=== PATIENT | male | born 2005 | race Two or more races ===

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

== ENCOUNTER 2025-02-07 08:53 | Emergency (ER) | payer BC, SELFPAY ==
[2025-02-07] VITALS (14 sets, daily range): BP systolic 111–123; BP diastolic 68–78; PULSE 61–62; RESP 0–23; TEMP 36.4; O2SAT 98–99; BMI 24.1
--- OUTSIDE RECORDS SUMMARY | 2025-02-07 08:55 | XMS_ITS | Patient Health Record ---
Author Organization [facility] Address [address] [facility] [address] [place], [place] [address] Care Team Providers Care Kiln Pusher Name Role Phone Clinic [facility] Primary Care Provider [phone] Dalila Hernandez Unavailable [phone] Allergies Allergen (clinical drug ingredient) Drug/Non Drug Allergy [...] Active beau grass (uncoded) Unknown Allergy Active Reason For Referral No Information Medications Medication SIG (Take, Route, Frequency, Duration) Notes Start Date End Date Status EPINEPHrine 0.3 MG/0.3ML as directed Injection 05/31/2019 Active Albuterol Sulfate (2.5 MG/3ML) 0.083% 3 mL Inhalation every 4 hours as needed Not-Taking Symbicort 80-4.5 MCG/ACT 2 puffs Inhalation every 4 hours as needed JESENIA 1 Please dispense 90 day supply. Thank you! Active Social History Tobacco Use: Social History Observation Description Date Details (start date - stop date) Never Smoker NA - NA Tobacco Question Answer Notes status: never smoked Problems Problem Type SNOMED Code ICD Code Onset Dates Problem Status W/U Status Risk Notes Problem Environmental allergy (414170887) Environmental allergies (Z91.048) Active confirmed Problem Food allergy (636023673) Food allergy (Z91.018) Active confirmed Problem Uncomplicated moderate persistent asthma (574864562) Asthma, moderate persistent, well-controlled (J45.40) Active confirmed Problem Environmental allergy (562411868) Environmental allergies (Z91.09) Active confirmed Problem Obesity (012722990) Obesity, unspecified (E66.9) Active confirmed Problem Childhood obesity (377505358) Pediatric body mass index (BMI) of greater than or equal to 95th percentile for age (Z68.54) Active confirmed Plan Of Treatment No Information Insurance Providers Payer Name Payer Address Payer Phone Subscriber Number Group Number Insured Name Patient Relationship to Insured Coverage Start Date Coverage End Date [facility] [address] [address] [place] [address] [id number] José Luis Aguilar Child - Insured has Financial Responsibility Medical (General) History Hospitalization History Reason Date(Month/Year) Asthma Exacerbation and Influenza 2017-06/08/2017
--- OUTSIDE RECORDS SUMMARY | 2025-02-07 08:55 | XMS_ITS | Clinical Summary ---
Author Organization [facility] Address [address] [place] [address] Care Team Providers Care Drier And Grinder Tender Name Role Phone Pcp, No Primary Care Provider Unavailabl e Allergies Active Allergy Reactions Criticality Noted Date Comments Shellfish Containing Products Hives,Itching 02/03/2009 Lobster/crab legs Medications EPINEPHrine (EPIPEN) 0.3 mg/0.3 mL auto-injectorInd ications:Mild persistent asthma without complication (HC) Inject 0.3 mg (1 Pen) intramuscular each time if needed for Allergic Reaction. 2 Each 1 05/25/19 25 Active albuterol HFA (ProAir HFA) 90 mcg/actuation inhalerIndicatio ns:Mild persistent asthma without complication (HC) Inhale 1-2 Puffs by mouth 4 times daily if needed for Shortness Of Breath. 1 Each 3 05/25/19 25 Active Symbicort 80-4.5 mcg/actuation (80-4.5 mcg each actuation) inhalerIndicatio ns:Mild persistent asthma without complication (HC) Inhale 2 Puffs by mouth once daily. 10.2 g 07/25/19 25 Active Active Problems Problem Noted Date Diagnosed Date Asthma, mild intermittent, well-controlled 11/12 Childhood obesity 11/12/2022 Food allergy 11/12/2022 Non-seasonal allergic rhinitis due to pollen Mild persistent asthma with acute exacerbation 0 06/06/2015 Allergic reaction 12/11/2008 Encounters Date Type Department Care Team Description 02/07/2025 Nurse Triage [facility] [address] [place] [address] Quinten Farnsworth DO 02/07/2025 Nurse/Clinic Staff Only [facility] [address] [place] [address] Quinten Farnsworth, Error-please disregard 02/07/2025 Travel from Last 3 Months Immunizations Immunization Administration Dates Next Due AMB Influenza, IIV3 (Age 6-3 5 mos) Preserve Free (Flu Clinic Only) 03/09/2021 AMB Influenza, IIV3 (Age >=3 years)(Flu Clinic Only) 03/22/2008 AMB Influenza, IIV4 PF (=>6 mos Flulaval,Fluzone Fluarix)(Flu Clinic Only) 03/17/2019,03/03/2015,03/02/2014 COVID-19 VACCINE SPIKEVAX (M ODERNA 50MCG/0.5ML) 12YO+ PFS 05/15/2024,04/07/2023 COVID-19 vaccine ([employer] NTech 30mcg/0.3mL) PF, MDV 10/27/2020,10/03/2020 DTaP 05/13/2006 [id number] (Pediarix) 2005,2005,1 06/01/2004 DTaP-IPV (Kinrix) 12/28/2010 HIB PRP-OMP (PedvaxHIB) 05/13/2006,2005, HPV 9 (Gardasil 9) 11/27/2020,05/06/2020, 020 Hepatitis A (Peds) 02/03/2007,02/03/2006 Hepatitis B (Peds) 2005 INFLUENZA, IIV3 PF (AGE >= 6 MO) 05/15/2024 Influenza A (H1N1), Inactivated 03/28/2009 Influenza, IIV3 (Age 6-35 mos) 1,02/04/2010,03/30/2007,05/13,03/15/2006 Influenza, IIV3 (Age >=3 years) 04/06/20 13,02/04/2012,02/02/2011,02/04,03/30/2007,05/13/2006,03/15/2006 Influenza, IIV4 04/07/2023,,03/03/2021,02/06,02/08/2018,05/17/2017,02/25/2016 MENINGOCOCCAL VACCINE 2 VIAL 2MO-55YO (MENVEO) 03/19/2021,01/12/2018 MMR 12/28/2010,02/03/2006 Pneumococcal conj 7-Valent (Prevnar 7) 1 2005,2005,2005,04/01 [...] PHQ-2 Answer Date Recorded PHQ-2 TOTAL SCORE 0 05/25/2024 Social Connections Answer Date Recorded Do you often feel lonely or isolated from those around you? 0 05/21/2024 Financial Resource Strain Answer Date R ecorded Difficulty of Paying Living Expenses 3 05/21/2024 Difficulty of Paying Living Expenses Not on file 05/21/2024 Food Insecurity Answer Date Recorded Do you worry your food will run out before you are able to buy more? 1 05/21/2024 Transportation Needs Answer Date Record ed Does lack of transportation keep you from medica l appointments? 1 05/21/2024 Does lack of transportation keep you from work, meetings or getting things that you need? 1 05/21/2024 Housing Stability Answer Date Recorded What is your housing situation today? 1 05/21/2024 Utilities Answer Date Recorded Do you have trouble paying f or utilities (for example, heat, electricity, water, phone)? 1 05/21/2024 Sex and Gender Information Value Date Recorded Sex Assigned at Not on file Legal Sex Male 7:11 AM SOFTWARE MANAGER Gender Identity Not on file Sexual Orientation Not on file Obstetrics History Last Filed Vital Signs Vital Sign Reading Time Taken Comments Blood Pressure 131/83 05/25/2024 7:24 AM SOFTWARE MANAGER Pulse 76 05/25/2024 7:24 AM SOFTWARE MANAGER Temperature 37 C (98.6 F) 07/12/2023 1:49 PM SOFTWARE MANAGER Respiratory Rate 34 06/03/2017 10:0 0 AM SOFTWARE MANAGER Oxygen Saturation 97% 05/25/2024 7:24 AM SOFTWARE MANAGER Inhaled Oxygen Concentration - - Weight 95.6 kg (210 lb 12.8 oz) 05/25/2024 7:24 AM SOFTWARE MANAGER Height 179.6 cm (5' 10.71) 05/25/2024 7:[address] Body Mass Index 29.64 05/25/2024 7:24 AM SOFTWARE MANAGER Plan of Treatment Health Maintenance Due Date Last Done Comments HIV for age 15-65 02/02/2020 Hepatitis C screening for age 18-79 2023 Influenza Vaccine (#1) 2025 , 04/07/2023, 03/22/2022, Additional history exists BMI (ht and wt on same day) for age 18+ 05/25/2025 05/25/2024, 07/12/2023, 04/07/2023 Depression screening for age 12+ 05/25/2025 05/25/2024, 04/07/2023, 03/22/2022, Additional history exists Well Child Check for age 3-20 05/25/2025 05/25/2024, 04/07/2023, 03/22/2022, Additional history exists Tetanus booster 01/13/2028 01/12/2018 RSV vaccine for adults or (1 - 1-dose 75+ series) 02/02/2080 Hepatitis B series for 19+ Completed 07/30, 2005, 2005, Additional history exists Pneumococcal series for age 6-49 Aged Out 05/13/2006, 2005, 2005, Additional history exists No longer eligible based on patient's age to complete this topic HPV series for age 9-45 Completed 11/28/19, 05/06/2020, 02/07/2020 Meningococcal series for age 11-21 Completed 03/19/2021, 01/12/2018 COVID-19 vaccine series Completed 05/15/20, 04/07/2023, 04/27/2022, Additional history exists Insurance [facility] Care Teams Drier And Grinder Tender Relationship Specialty Start Date End Date Pcp, No . PCP - General 11/03/22
--- NOTE | 2025-02-07 09:34 | CRLHL7_ITS ---
For Patients: As a result of the Century Cures Act, medical imaging exams and procedure reports are released immediately into your electronic medical record. You may view this report before your referring provider. If you have questions, please contact your health care provider. Indication: Chest pain and coughing Technique: Chest 2 views Comparison: Chest x-ray 07/08/2023 Findings/Impression: Cardiovascular and mediastinum: Heart size and vasculature are normal in caliber and appearance. Mediastinum is within normal limits. Lungs and pleural spaces: Lungs are clear. No sign of infiltrate or mass. No sign of pleural effusion. No pneumothorax. Bones and soft tissues: Interval plate and screw fixation of the mid left clavicle. Dictated by Brian Gillis MD @ 02/07/2025 11:08:34 AM (Electronically Signed)
[2025-02-07 09:35] LABS: Troponin, Point-of-Care* 2.11 ng/ml (0.01-0.04)
[2025-02-07 09:48] LABS: Hematocrit* 39.2 % (37.0-53.0); Hemoglobin* 13.2 gm/dL (13.5-17.5); Immature Granulocytes Abs Auto 0.03 K/uL (0.00-0.30); Immature Granulocytes Pct Auto 0.4 %; Mean Corpuscular HGB Conc 34 gm/dL (32-36); Mean Corpuscular Hemoglobin 29 pg (26-34); Mean Corpuscular Volume 86 fL (80-100); RDW Coefficient of Variation % 12.2 % (11.5-15.5); Red Blood Count* 4.56 m/uL (4.30-5.90); White Blood Count* 7.59 K/uL (4.50-11.00)
[2025-02-07 09:51] LABS: Lymphocytes Absolute Auto 1.30 K/uL (0.90-2.90); Slide Review Reflex No
[2025-02-07 09:58] LABS: Chloride* 105 mmol/L (96-114); Sodium* 139 mmol/L (135-149)
[2025-02-07 09:59] LABS: Potassium* 4.0 mmol/L (3.6-5.1)
[2025-02-07 10:02] LABS: Anion Gap 9 mEq/L (7-15); Blood Urea Nitrogen* 24 mg/dL (5-24); Calcium* 8.9 mg/dL (8.4-10.6); Carbon Dioxide* 25 mmol/L (20-32); Creatinine* 0.8 mg/dL (0.5-1.5); Est. Creatinine Clearance* 152.08; Estimated Glomerular Filt Rate 130 ml/min; Glucose* 118 mg/dL (60-115)
[2025-02-07 10:16] LABS: NT Pro B Type NatriureticPept* 90 pg/mL (See Note)
--- NOTE | 2025-02-07 10:23 | ED.CHESTPAIN ---
HPI - Chest Pain General Date Seen: 02/07/25 Chief Complaint: Chest Pain Stated Complaint: chest pain Time Seen by Provider: 02/07/25 09:09 Source: patient Mode of arrival: ambulatory Limitations: no limitations History of Present Illness HPI narrative: Patient is a 20-year-old male with no pertinent medical problems presenting to the emergency department for chest pain. He states he woke up suddenly this morning having this deep midsternal chest pain that he describes as a pressure sensation. States the pain feels severe. Denies ever having pain like this before. Does state the pain makes it difficult to take a deep breath. Not aware of any sick contacts but has had viral symptoms earlier in the week when he had a fever of 103. Also symptoms have resolved he states. Denies any recent travel. Denies history of blood clots, familial clotting disorders, recent surgeries, hormone use, hemoptysis, lower extremity swelling, history of familial heart disease at a young age, family members dying suddenly from unknown causes. Denies headache, vision changes, dizziness, abdominal pain. Does states he has mild nausea of but has not had any vomiting. Does feel slightly lightheaded. No other concerns noted at this time. Related Data Home Medications ?Medication ?Instructions ?Recorded ?Confirmed budesonide-formoterol HFA 80 inhalation 03/22/23 10/14/24 mcg-4.5 mcg/actuation aerosol inhaler (Symbicort) epinephrine 0.3 mg/0.3 mL 0.3 mg IM ONCE 03/22/23 10/14/24 injection, auto-injector albuterol sulfate 90 mcg/actuation 1 inh inhalation Q4-6H PRN 07/13/23 10/14/24 aerosol inhaler Allergies Allergy/AdvReac Type Severity Reaction Status Date / Time shellfish derived Allergy Severe Anaphylaxis Verified 10/14/24 10:11 Review of Systems Status of ROS Reports: 10 or more systems reviewed and unremarkable except as noted in History and below [facility] Medical History Pneumothorax (~2017) ?J93.9 - Pneumothorax, unspecified (ICD-10) Asthma ?J45.909 - Unspecified asthma, uncomplicated (ICD-10) Surgical History History of open reduction and internal fixation (ORIF) procedure (07/13/23) ?Z98.890 - Other specified postprocedural states (ICD-10) Social History Smoking Status: Never smoker Do you use any of these nicotine containing products: None How often do you have a drink containing alcohol: never AUDIT-C Alcohol total score: 0 Non-prescribed substance use: denies use Caffeine: No Exam Narrative Exam Narrative: Const: Well-nourished, Well-developed, in moderate distress Eyes: PERRL, no conjunctival injection, and symmetrical lids HENT: Atraumatic external nose and ears. Moist mucous membranes. Neck: Symmetric, trachea midline, No thyromegaly. CVS: RRR, No murmurs or gallops. Peripheral pulses 2+ and equal in all extremities RESP: Unlabored respiratory effort. Clear to auscultation bilaterally. GI: Nontender/Nondistended, No rebound or guarding. MSK:Extremities w/o deformity, Normal Active ROM Skin: Warm, Dry. No rashes or lesions. Neuro: Normal Muscle tone, No focal neurological deficits. Psych: Awake, Alert, & Oriented x3. Appropriate mood and affect. Const Vital Signs, click to edit/add: Vital Signs - 24 hr 02/07/25 08:57 02/07/25 11:16 Temperature 97.5 F L Pulse Rate [Pulse Oximeter] 61 62 Respiratory Rate 20 12 Blood Pressure [Right Upper Arm] 111/68 114/69 Pulse Oximetry 99 98 Oxygen Delivery Method Room Air Room Air Course Vital Signs Vital signs: Initial Vital Signs Temperature 97.5 F L 02/07/25 08:57 Temperature Source Temporal Artery Scan 02/07/25 08:57 Pulse Rate 61 02/07/25 08:57 Respiratory Rate 20 02/07/25 08:57 Blood Pressure 111/68 02/07/25 08:57 Blood Pressure Mean 82 02/07/25 08:57 Blood Pressure Position Sitting 02/07/25 08:57 Pulse Oximetry 99 02/07/25 08:57 Oxygen Delivery Method Room Air 02/07/25 08:57 Vital Signs Temperature 97.5 F L 02/07/25 08:57 Pulse Rate 61 02/07/25 08:57 Respiratory Rate 20 02/07/25 08:57 Blood Pressure 111/68 02/07/25 08:57 Pulse Oximetry 99 02/07/25 08:57 Oxygen Delivery Method Room Air 02/07/25 08:57 Temperature 97.5 F L 02/07/25 08:57 Pulse Rate 62 02/07/25 11:16 Respiratory Rate 12 02/07/25 11:16 Blood Pressure 114/69 02/07/25 11:16 Pulse Oximetry 98 02/07/25 11:16 Oxygen Delivery Method Room Air 02/07/25 11:16 MDM - Chest Pain MDM Narrative Medical decision making narrative: Patient is a 20-year-old male presenting to the emergency department for chest pain. The differential diagnosis of chest pain is broad and includes common etiologies such as musculoskeletal strain, GERD, pneumonia, etc. More serious etiologies considered include PE, coronary artery disease, pneumothorax, aortic dissection, aortic aneurysm. He is PERC negative and PE can not be ruled out. He looks otherwise stable and aortic dissection and aortic aneurysm seem unlikely. Will do EKG and troponin look for signs of cardiac abnormalities. Initial troponin came back at 2.68. EKG appears to show normal sinus rhythm with early repolarization. Lab work otherwise returned showing no concerning abnormalities. Is spoke to Dr. Faust, who recommends transfer to [place] for echocardiogram and cardiac MRI. Patient is agreeable to this plan. Lab Data Labs: Lab Results 02/07/25 02/07/25 Range/Units 09: 09:25 WBC 7.59 (4.50-11.00) K/uL RBC 4.56 (4.30-5.90) m/uL Hgb 13.2 L (13.5-17.5) gm/dL Hct 39.2 (37.0-53.0) % MCV 86 (80-100) fL MCH 29 (26-34) pg MCHC 34 (32-36) gm/dL RDW Coeff of Ana 12.2 (11.5-15.5) % Plt Count 168 (140-440) K/uL Neut % (Auto) 67.3 (42.0-72.0) % Lymph % (Auto) 17.7 L (20-44) % Carlton % (Auto) 11.1 H (0.0-11.0) % Eos % (Auto) 3.2 (0.0-7.0) % Baso % (Auto) 0.3 (0.0-3.0) % Neut # (Auto) 5.12 (1.7-7.0) K/uL Lymph # (Auto) 1.30 (0.90-2.90) K/uL Carlton # (Auto) 0.80 (0.00-0.90) K/UL Eos # (Auto) 0.24 (0.00-0.50) K/uL Baso # (Auto) 0.02 (0.00-0.30) K/uL Abs Immat Gran (auto) 0.03 (0.00-0.30) K/uL Imm/Tot Granulo (auto) 0.4 % Sodium 139 (135-149) mmol/L Potassium 4.0 (3.6-5.1) mmol/L Chloride 105 (96-114) mmol/L Carbon Dioxide 25 (20-32) mmol/L Anion Gap 9 (7-15) mEq/L BUN 24 (5-24) mg/dL Creatinine 0.8 (0.5-1.5) mg/dL Estimated Creat Clear 152.08 Estimated GFR 130 ml/min Glucose 118 H (60-115) mg/dL Calcium 8.9 (8.4-10.6) mg/dL Magnesium 1.9 (1.5-2.6) mg/dL Troponin I 2.68 H* (0.01-0.04) ng/mL NT-Pro-B Natriuret Pep 90 (See Note) pg/mL POC Troponin I 2.11 H (0.01-0.04) ng/ml Imaging Data Chest x-ray: Attestation: I have reviewed the pertinent imaging results. Radiologist's impression: Cardiovascular and mediastinum: Heart size and vasculature are normal in caliber and appearance. Mediastinum is within normal limits. Lungs and pleural spaces: Lungs are clear. No sign of infiltrate or mass. No sign of pleural effusion. No pneumothorax. Bones and soft tissues: Interval plate and screw fixation of the mid left clavicle. Dictated by Brian Gillis MD @ 02/07/2025 11:08:34 AM ECG Data Attestation: I personally reviewed and interpreted this ECG as follows: Prior ECG tracings: not available for review Interpretation: Initial EKG at 09:11 shows normal sinus rhythm rate 65 beats per minute, early repolarization. Through are T-wave inversions in AVR/aVL/V1/V2 unsure if these are new or not. Repeat EKG at 10:30 shows normal sinus rhythm rate 67 beats per minute, early repolarization. Through are T-wave inversions in AVR/aVL/V1/V2 unsure if these are new or not. Appears similar previous EKG Discharge Plan Discharge Clinical Impression: Myocarditis Qualifiers: Myocarditis type: unspecified Chronicity: acute Qualified Code(s): I40.9 - Acute myocarditis, unspecified Patient Disposition: [facility] Condition: Stable Prescriptions: No Action budesonide-formoterol [Symbicort] 80-4.5 mcg/actuation HFA aerosol inhaler inhalation epinephrine 0.3 mg/0.3 mL auto-injector 0.3 mg IM ONCE Rx Instructions: as a single dose; may repeat once albuterol sulfate 90 mcg/actuation HFA aerosol inhaler 1 inh inhalation Q4-6H PRN Stand Alone Forms: MyHealth Info Instructions
[2025-02-07 11:10] LABS: PCR FLU A Negative PCR FLU A (Negative); PCR FLU B Negative PCR FLU B (Negative); PCR RSV Negative PCR RSV (Negative); SARS PCR* Negative SARS-CoV-2 (Negative)
== END 2025-02-07 14:57 | disposition short-term general hospital (02) ==
PROVIDERS: Emergency Provider Student in an Organized Health Care Education/Training Program; PCP Student in an Organized Health Care Education/Training Program
DX: I51.4 Myocarditis, unspecified (principal)
CPT/HCPCS: 36415; 71046; 80048; 83735; 83880; 84484; 85025; 87631; 93005; 93306; 99285

== ENCOUNTER 2025-02-07 14:40 | Outpatient (CLI) | payer BC, SELFPAY | END 2025-02-07 14:41 | disposition home or self-care (01) | LOC: AMB 02-08 10:32 | PROVIDERS: PCP Student in an Organized Health Care Education/Training Program; Visit Provider Student in an Organized Health Care Education/Training Program | DX: I40.9 Acute myocarditis, unspecified (principal) | CPT/HCPCS: A0425; A0427 ==